=== PATIENT | male | born 1945 | race Caucasian/White ===

== ENCOUNTER 2017-05-17 03:34 | Inpatient (IN) | END 2017-05-19 18:30 | disposition home or self-care (01) | DRG 378 ==

== ENCOUNTER 2017-09-24 22:56 | Emergency (ER) | END 2017-09-25 05:10 | disposition home or self-care (01) ==

== ENCOUNTER 2017-12-08 10:03 | Emergency (ER) | END 2017-12-08 12:23 | disposition home or self-care (01) ==